=== PATIENT | female | born 2005 | race Caucasian/White ===

== ENCOUNTER 2025-06-21 10:04 | Emergency (ER) | payer MEDICAID, SELFPAY ==
--- NOTE | ~2025-06-21 | XR_ITS ---
EXAMINATION: X-ray left ankle X-ray left foot CLINICAL INFORMATION: Fall, fracture COMPARISON: None TECHNIQUE: Ankle 3 views. Foot 3 views. FINDINGS: Ankle: Asymmetric widening of the medial ankle mortise. There is a mildly displaced fracture fragment posteriorly at the level of the distal tibia, concerning for a posterior malleolar fracture. No fibular fracture is seen. The talar dome appears intact. Soft tissue swelling. Foot: Alignment is anatomic. Tarsometatarsal alignment is maintained. No visible acute fracture or dislocation. No suspicious bony lesions. No abnormal soft tissue calcification. Mild dorsal soft tissue swelling. XR/XR foot LT min 3V IMPRESSION: Ankle: Findings suspicious for a mildly displaced posterior malleolar fracture of the tibia. Soft tissue swelling. Further imaging as clinically indicated. Foot: No acute fracture identified Follow-up imaging as indicated Electronically signed by: Rodolfo Romero MD 06/21/2025 11:57 AM CRICKET
--- NOTE | ~2025-06-21 | XR_ITS ---
EXAMINATION: X-ray left ankle X-ray left foot CLINICAL INFORMATION: Fall, fracture COMPARISON: None TECHNIQUE: Ankle 3 views. Foot 3 views. FINDINGS: Ankle: Asymmetric widening of the medial ankle mortise. There is a mildly displaced fracture fragment posteriorly at the level of the distal tibia, concerning for a posterior malleolar fracture. No fibular fracture is seen. The talar dome appears intact. Soft tissue swelling. Foot: Alignment is anatomic. Tarsometatarsal alignment is maintained. No visible acute fracture or dislocation. No suspicious bony lesions. No abnormal soft tissue calcification. Mild dorsal soft tissue swelling. XR/XR ankle LT min 3V IMPRESSION: Ankle: Findings suspicious for a mildly displaced posterior malleolar fracture of the tibia. Soft tissue swelling. Further imaging as clinically indicated. Foot: No acute fracture identified Follow-up imaging as indicated Electronically signed by: Rodolfo Romero MD 06/21/2025 11:57 AM CRICKET
[2025-06-21 10:34] VITALS: BP 134/87; PULSE 85; RESP 16; TEMP 36.1; O2SAT 100; BMI 33.1
--- NOTE | 2025-06-21 10:38 | ED_ITS ---
HPI - General Adult General Chief complaint: Extremity Injury, Lower Stated complaint: Injury- ankle inj Time Seen by Provider: 06/21/25 12:54 Source: patient Mode of arrival: wheelchair Limitations: no limitations History of Present Illness ED Provider: Karime Morocho PA-C HPI narrative: Patient is a 20 year old assigned female at with no reported medical history presenting to the emergency department today with left ankle pain after a slip and fall. Patient states that she slipped last night and injured her left ankle. Patient denies any head strike or loss of consciousness with the incident. Patient denies any other complaints at this time. Related Data Previous Rx's ?Medication ?Instructions ?Recorded acetaminophen 325 mg tablet 650 mg (2 x 325 mg) PO Q6H PRN 06/21/25 (Tylenol) pain #14 tabs ibuprofen 600 mg tablet 600 mg PO Q8H PRN pain #14 t abs 06/21/25 Allergies Allergy/AdvReac Type Severity Reaction Status Date / Time No Known Allergies (No Known Allergy Verified 06/21/25 10:36 Allergies*) Review of Systems Constitutional: Constitutional: Reports as per HPI Eyes: Eyes: Reports as per HPI ENT: Reports as per HPI Cardiovascular: Cardiovascular: Reports as per HPI Respiratory: Respiratory: Reports as per HPI Gastrointestinal: Gastrointestinal: Reports as per HPI Genitourinary: Genitourinary: Reports as per HPI Musculoskeletal: Musculoskeletal: Reports as per HPI Integumentary/Breasts: Skin/Breast: Reports as per HPI Neurologic: Reports as per HPI Psychiatric: Psychiatric: Reports as per HPI Endocrine: Endocrine: Reports as per HPI Hematologic/Lymphatic: Hematologic/Lymphatic: Reports as per HPI Allergic/Immunologic: Allergic/Immunologic: Reports as per HPI [facility] Past Medical History Attestation statement: The following information was validated with the patient. Source: old records reviewed and nursing notes reviewed Social History Social History Advance Directives: No Advance Directives Information Provided: Yes Physical Exam ED Vital Signs: Vital Signs - 24 hr 06/21/25 10:34 06/21/25 13:18 06/21/25 14:18 Temperature 97 F 0 F L Pulse Rate 85 71 71 Respiratory Rate 16 18 18 Blood Pressure 134/87 129/74 129/74 Pulse Oximetry 100 98 98 Oxygen Delivery Method Room Air Room Air Room Air BMI result Body Mass Index 33.1 Const General: cooperative, no acute distress, alert and awake Nutritional Appearance: well nourished Orientation/consciousness: patient oriented x3 HENMT Head: Yes normal to inspection and Yes atraumatic Ears: hearing grossly normal bilaterally and external ears normal General nose exam: Normal external nose present, no nasal discharge noted and no epistaxis Face and sinus: Yes normal facial exam, No abrasion and No laceration Mouth: Normal oral and palatal mucosa present, no drooling and no muffled voice Eyes General: appearance normal, both eyes and all related structures Periorbital: periorbital findings normal Eyelids: Yes eyelids normal Conjunctivae: conjunctivae normal Pupils: Equal, round and reactive pupils present EOM: EOMs intact bilaterally Neck Neck: Yes normal visual inspection and Yes full ROM Resp Effort & Inspection: normal respiratory effort and able to speak in complete sentences Neuro General: patient oriented x3, moves all extremities and CN's II-XI intact bilaterally Cranial nerves: Yes Equal, round and reactive pupils present Cognition (Neuro): normal cognition Extrem Other: decreased ROM of the left ankle secondary to pain mild swelling present to the left ankle General: Yes capillary refill normal Psych Appearance: grossly normal Mental Status: mental status grossly normal Affect: normal affect Attitude: cooperative Thought process: Normal thought process present Thought content: Normal thought content present Insight: Good insight present (Psych) Course Course Course Narrative: RME: 20 yold female presents to the ED for let ankel injury that occurred last night. patient slipped on carpet last night and fell unto her ankle and heard a crack. positive for ankle tenderness. Xrays ordered Medications Administered Discontinued Medications Generic Name Dose Route Start Last Admin Trade Name Perfectoq PRN Reason Stop Dose Admin Ketorolac Tromethamine 15 mg 06/21/25 14:02 06/21/25 14:21 Ketorolac Tromethamine 15 Mg/Ml Vial IM 06/21/25 14:03 Not Given ONCE ONE Procedures Orthopedic Splinting/Casting Left ankle fracture: Side: left Lower Extremity Injury Location: ankle Lower Extremity Immobilizer: posterior splint Other Orthopedic Equipment: crutches Medical Decision Making Medical Decision Making MDM Narrative: Patient is a 20 year old assigned female at with no reported medical history presenting to the emergency department today with left ankle pain after a slip and fall. Patient's physical exam was as noted in the physical exam portion of this note. Patient's left foot x-ray showed no acute process. Patient's left ankle x-ray showed evidence of a mildly displaced posterior malleolar fracture of the tibia. I spoke with the orthopedic team who recommended a posterior short splint with non weight bearing and crutches. They also stated that since this is not an operative case - she could follow up with the podiatry team. I explained my physical exam findings as well as all test results to the patient. I answered all questions asked by the patient. Patient's left lower extremity was placed in a posterior short leg splint, wit hout incident. Patient's PMS was intact prior to and after splint placement. Patient was given crutches with crutch instructions. Patient was able to demonstrate appropriate use of crutches while in the department. I stressed the importance of the patient taking her medication as directed (either prescribed or as the over the counter packaging recommends). I stressed the importance of the patient following up with her primary care provider and the podiatry team. I stressed the importance of the patient returning to the emergency department immediately if her symptoms were to worsen or if she were to develop any dizziness, shortness of breath, difficulty breathing, chest pain, blurry vision, loss of vision, nausea, vomiting, abdominal pain, fever, chills, back pain, or any other complaints. Patient verbalized agreement and understanding with this treatment plan and discharge. Differential Diagnosis Differential Diagnoses: The differential diagnosis associated with the presentation includes Left ankle fracture Left ankle sprain Left ankle strain Left foot sprain Left foot strain Admission/Observation Consideration of admission/observation: Escalation of care including admission/observation considered Patient would have been admitted to the hospital had her work up had any findings where hospital admission was appropriate and her clinical presentation warranted hospital admission. Consult Healthcare Provider Management of the patient was discussed with: Superintendent Terminal (spoke with the orthopedic team as noted in the MDM Rationale portion of this note. ) Lab Data [facility] Lab Attestation statement: I reviewed the patient's lab results. My interpretation of these results are in the MDM Rationale portion of this note. Labs: Lab Results 06/21/25 Range/Units 10:43 Urine Color Yellow Urine Appearance Clear Urine pH 6.5 (5.0-9.0) Ur Specific [place] 1.020 (1.005-1.025) Urine Protein Negative (Neg-Trace) mg/dL Urine Glucose (UA) Negative (Negative) mg/dL Urine Ketones Negative (Negative) mg/dL Urine Blood Negative (Negative) Urine Nitrite Negative (Negative) Ur Leukocyte Esterase Moderate (2+) H (Negative) Urine RBC 0-2 (0-2) /HPF Urine WBC 0-5 (0-5) /HPF Ur Squamous Epith Cells 6-10 (0-2) /HPF Urine Bacteria 1+ (None Seen) Hyaline Casts 0-2 (0-2) /LPF Urine Test NEGATIVE (NEGATIVE) Independent Interpretation I performed an independent interpretation of an: Plain X-Ray Interpretation: My interpretation is in agreement with the radiologist's impression of these imaging studies. Reason for Exam: foot pain. fall fracture EXAMINATION: X-ray left ankle X-ray left foot CLINICAL INFORMATION: Fall, fracture COMPARISON: None TECHNIQUE: Ankle 3 views. Foot 3 views. FINDINGS: Ankle: Asymmetric widening of the medial ankle mortise. There is a mildly displaced fracture fragment posteriorly at the level of the distal tibia, concerning for a posterior malleolar fracture. No fibular fracture is seen. The talar dome appears intact. Soft tissue swelling. Foot: Alignment is anatomic. Tarsometatarsal alignment is maintained. No visible acute fracture or dislocation No suspicious bony lesions. No abnormal soft tissue calcification. Mild dorsal soft tissue swelling. XR/XR foot LT min 3V IMPRESSION: Ankle: Findings suspicious for a mildly displaced posterior malleolar fracture of the tibia. Soft tissue swelling. Further imaging as clinically indicated. Foot: No acute fracture identified Follow-up imaging as indicated Electronically signed by: Rodolfo Romero MD 06/21/2025 11:57 AM EST Dictated By: Rodolfo Romero MD Signed By: Electronically signed by Rodolfo Romero MD 06/21/25 1612 Radiology Impression Discussion of test interpretation with radiology: I have reviewed the radiologist's reading. Critical Care Time Critical Care Time Critical Care Time: Yes Total Critical Care Time: 31 Attestation: I spent 31 minutes of Critical Care Time with this patient. This does not include time spent on separately reported billable procedures. Discharge Plan Discharge Clinical Impression: Ankle fracture Qualifiers: Encounter type: initial encounter Fracture type: closed Laterality: left Qualified Code(s): S82.892A - Other fracture of left lower leg, initial encounter for closed fracture Patient Disposition: Home, Self-Care Instructions: Ankle Fracture (DC) Additional Instructions: Do NOT bear weight to the left lower extremity. Do NOT stick anything down / into your splint. Do NOT get your splint wet. Do NOT remove your splint. If you have any change in sensation, movement, or color of your left toes - you may loosen the outer CHICHI wraps. If you find yourself loosening the CHICHI wraps to the point of seeing the white splint material underneath - STOP and proceed to your closest Emergency Department, immediately. Follow up with your primary care provider and the podiatry team. Return to the emergency department immediately if your symptoms worsen or if you develop any numbness, tingling, dizziness, shortness of breath, difficulty breathing, chest pain, blurry vision, loss of vision, nausea, vomiting, abdominal pain, fever, chills, back pain, or any other complaints. If you do not have a primary care provider - call any of the below numbers to establish and follow up with a primary care provider. [facility] Primary Care ([place]) [phone] [place] [address], [address] [facility] Primary Care ([address] [place]) [phone] [place] [address], [address] [facility], [address] [facility] Primary Care ([address] [place]) [phone] [place] [address], [address] [facility], [address] [facility] Primary Care ([place]) [phone] [place] [address] [address] [facility], [address] [facility] Family Medicine [phone] [address] [facility], [address] Please see the information below about our Patient Portal. If you are not yet enrolled in the [facility] Patient Portal, you will receive an enrollment email invitation following your visit to any [facility] setting. You may also self-enroll in the Patient Portal by visiting our website: [email or web address] The following information is required to access the Patient Portal: - Your [facility] Medical Record Number - Your personal home email address (must match what is in your electronic medical record, Registration staff can assist with this) - Name - Date of Capabilities of the Patient Portal: - Message some providers - View upcoming appointments - Access your health summary, medical history, and visit history - View current conditions and allergies - View procedure and lab results - View your medications, including guidelines, side effects, and precautions - Complete pre-appointment questionnaires requested by your provider - Ready summary reports of your office visits and procedures To access the Patient Portal Mobile Jeffry, follow these directions: - Search [employer] Mask in the Jeffry Store or Seafile Store - Download the Jeffry - Search for [facility] - Enter your login/password Prescriptions: New acetaminophen [Tylenol] 325 mg tablet 650 mg PO Q6H PRN (Reason: pain) Qty: 14 0RF ibuprofen 600 mg tablet 600 mg PO Q8H PRN (Reason: pain) Qty: 14 0RF Referrals: [facility] Podiatry [Provider Group, Podiatry] Referral Note: Call to establish and follow up with the podiatry team for your left ankle fracture. Stand Alone Forms: Work/School Release Interventions: ED Discharge Assessment Last Done: 06/21/25 14:18 Discharge Date/Time: 06/21/25 14:19 Print Language: Pakistani
[2025-06-21 10:51] LABS: Appearance Urine Clear; Glucose Urine UA Negative (Negative); PH 6.5 (5.0-9.0); Specific Gravity - Urine 1.020 (1.005-1.025); UMIC TRIGGER UACC YES
[2025-06-21 10:54] LABS: UPreg QC Valid YES
[2025-06-21 11:03] LABS: UACC Culture Trigger YES
[2025-06-21 13:18] VITALS: BP 129/74; PULSE 71; RESP 18; O2SAT 98
--- NOTE | 2025-06-21 14:16 | PC.NURSE ---
pt requesting pain medication prior to discharge, attempted to medicated w IM toradol - pt declined d/t not wanting a shot. pt educated on benefits of medication, pt elected to take OTC anti-inflammatory medication at home instead.
[2025-06-21 14:18] VITALS: BP 129/74; PULSE 71; RESP 18; TEMP -17.7; TEMP 0; O2SAT 98
== END 2025-06-21 14:19 | disposition home or self-care (01) ==
PROVIDERS: Physician Assistant; Emergency Provider Emergency Medicine
DX: S82.892A Other fracture of left lower leg, initial encounter for closed fracture (principal); M25.572 Pain in left ankle and joints of left foot; X58.XXXA Exposure to other specified factors, initial encounter; W19.XXXA Unspecified fall, initial encounter; Y93.01 Activity, walking, marching and hiking; Y92.9 Unspecified place or not applicable; Y99.8 Other external cause status
CPT/HCPCS: 29515; 73610; 73630; 81001; 81025; 87086; 96372; 99284; J1885

== ENCOUNTER → 2025-06-21 10:36 | Outpatient (BNV) | payer MEDICAID, SELFPAY | PROVIDERS: Visit Provider Radiology Diagnostic Ultrasound | DX: R22.42 Localized swelling, mass and lump, left lower limb (principal) | CPT/HCPCS: 73610; 73630 ==

== ENCOUNTER 2025-06-24 10:24 | Outpatient (AMB) | payer MEDICAID, SELFPAY ==
--- NOTE | 2025-06-24 10:35 | A.OFFVIS_ITS ---
Vital Signs 06/24/25 10:36 Height 5 ft 1 in Weight 175 lb BMI 33.1 Intake Visit Reasons: mildly displaced posterior malleolar fracture of t Intake Note: gerald is a 20 year old female who presents today as a new patient for an evaluation of her mildly displaced posterior malleolar fracture of the tibia of the left ankle. Patient was seen at [facility] ED after she had fallen while she was at home in her room. While at the ED she was provided with crutches, a splint was applied to patient left foot, and she was prescribed ibuprofen. She denies any history of previous fracture or sprains and X ray is all set in patients chart. Allergies No Known Allergies (No Known Allergies*) Allergy (Verified 06/24/25 10:37) HPI Comments Details: The patient is a 20-year-old female with a past medical history as seen below presenting with a left ankle injury following a fall at home. The incident occurred recently, and the patient reports pain primarily around the ankle, with some pain extending up the leg. Patient states she was seen in the emergency room where she had x-rays done and was told she had a fracture. She states she noticed more swelling and bruising to the area but has noticed it continue to improve. Patient was placed in a posterior splint. She denies any other pedal concerns. [facility] Medical History (Updated 06/26/25 @ 14:53 by Eri Kinsey DPM) Tear of deltoid ligament of left ankle Deltoid (ligament), ankle sprain Closed left ankle fracture Left ankle pain Left ankle injury Review of Systems Const Details: - Musculoskeletal: Reports pain in the left ankle and up the leg. All systems reviewed & are unremarkable except as noted in HPI and below Physical Exam Vital Signs: BMI result Body Mass Index 33.1 Extrem Other: Left lower extremity focused physical exam: Derm: Mild edema and minimal ecchymosis noted to the left lower extremity. No open lesions abrasions or wounds no clinical signs of infection. No hyperkeratotic or macerated areas noted. Skin supple and turgor within normal limits. Vascular: DP/PT pulses palpable. Capillary refill time less than 3 seconds. Temperature gradient warm to warm. Pedal hair absent. No varicosities noted. Neuro: Protective sensation is grossly intact. MSK: Pain on palpation to the ankle along the medial lateral and posterior aspect. No pain on palpation to the foot. No pain upon palpation along the pr oximal aspect of the tibia and fibula. Range of motion of the forefoot within normal limits. Range of motion of the hindfoot and ankle reduced due to guarding from pain. Crepitus or fluctuance noted. Antalgic gait with the use of crutches, patient is nonweightbearing to the left lower extremity. Office Procedures [facility] Podiatry Dressing Details of Procedure: Applied a posterior splint to the left lower extremity. [address] - Short leg splint Procedure code (CPT) selection complete Results Reviewed Results Reviewed: Ordered left tib-fib x-rays and left ankle MRI to be performed prior to next visit. Podiatry read of left ankle x-ray (06/21/2025): Increased medial clear space noted greater than 5 mm of displacement. Avulsion fracture of the posterior malleolus noted with less than 2 mm of displacement. No distal fibular fracture or medial malleolar fracture noted. Left ankle x-ray (06/21/2025): FINDINGS: Ankle: Asymmetric widening of the medial ankle mortise. There is a mildly displaced fracture fragment posteriorly at the level of the distal tibia, concerning for a posterior malleolar fracture. No fibular fracture is seen. The talar dome appears intact. Soft tissue swelling. IMPRESSION: Ankle: Findings suspicious for a mildly displaced posterior malleolar fracture of the tibia. Soft tissue swelling. Further imaging as clinically indicated. Podiatry read of left foot x-ray (06/21/2025): Os trigonum noted. No acute fractures or dislocations noted. Joint spacing within normal limits. Left foot x-ray (06/21/2025): FINDINGS: Foot: Alignment is anatomic. Tarsometatarsal alignment is maintained. No visible acute fracture or dislocation. No suspicious bony lesions. No abnormal soft tissue calcification. Mild dorsal soft tissue swelling. IMPRESSION: Foot: No acute fracture identified Follow-up imaging as indicated Assessment & Plan Assessment & Plan (1) Left ankle pain: Code(s): M25.572 - Pain in left ankle and joints of left foot Category: Medical Qualifiers: Chronicity: acute Qualified Code(s): M25.572 - Pain in left ankle and joints of left foot (2) Left ankle injury: Code(s): S99.912A - Unspecified injury of left ankle, initial encounter Category: Medical Qualifiers: Encounter type: initial encounter Qualified Code(s): S99.912A - Unspecified injury of left ankle, initial encounter (3) Tear of deltoid ligament of left ankle: Code(s): S93.422A - Sprain of deltoid ligament of left ankle, initial encounter Category: Medical Qualifiers: Encounter type: initial encounter Qualified Code(s): S93.422A - Sprain of deltoid ligament of left ankle, initial encounter (4) Deltoid (ligament), ankle sprain: Code(s): S93.429A - Sprain of deltoid ligament of unspecified ankle, initial encounter Category: Medical Qualifiers: Encounter type: initial encounter Laterality: left Qualified Code(s): S93.422A - Sprain of deltoid ligament of left ankle, initial encounter (5) Closed left ankle fracture: Code(s): S82.892A - Other fracture of left lower leg, initial encounter for closed fracture Category: Medical Qualifiers: Encounter type: initial encounter Qualified Code(s): S82.892A - Other fracture of left lower leg, initial encounter for closed fracture Plan Patient was informed and verbally consented to the use of an ambient scribe for clinic note documentation during this visit. I discussed with the patient the findings from the x-rays, which showed a and avulsion fracture of the posterior malleolus and potential deltoid ligament injury. I explained the need for an MRI to further evaluate the deltoid ligament and discussed the possibility of surgical intervention pending results. I also explained the need for tib-fib x-rays to rule out a Maisonneuve fracture. I advised the patient to avoid weight-bearing activities and to continue using a splint. I also discussed pain management options, including ibuprofen or Tylenol PRN for pain - Ordered left tib-fib x-ray and left ankle MRI to be performed prior to next visit. - Applied a posterior splint to the left lower extremity. - Patient is to be nonweightbearing to the left lower extremity with the use of an assistive device. - Patient is to keep the splint clean dry and intact. - Continue taking ibuprofen or Tylenol PRN for pain. RTC in 1 week. Orders: Orders XR tibia fibula LT 2V 06/25/25 M25.572 - Pain in left ankle and joints of left foot, S82.892A - Other fracture of left lower leg, initial encounter for closed fracture, S93.422A - Sprain of deltoid ligament of left ankle, initial encounter, S93.429A - Sprain of deltoid ligament of unspecified ankle, initial e ncounter, S99.912A - Unspecified injury of left ankle, initial encounter MR ankle LT wo con 06/24/25 M25.572 - Pain in left ankle and joints of left foot, S93.422A - Sprain of deltoid ligament of left ankle, initial encounter, S93.429A - Sprain of deltoid ligament of unspecified ankle, initial encounter [facility] Podiatry Dressing 06/24/25 M25.572 - Pain in left ankle and joints of left foot, S82.892A - Other fracture of left lower leg, initial encounter for closed fracture, S93.422A - Sprain of deltoid ligament of left ankle, initial encounter, S99.912A - Unspecified injury of left ankle, initial encounter Coding Level of Care Code New Pt Level 4 (26368) Diagnoses Acute left ankle pain M25.572 Chronicity: acute Injury of left ankle, initial encounter S99.912A Encounter type: initial encounter Tear of deltoid ligament of left ankle, initial encounter S93.422A Encounter type: initial encounter Sprain of deltoid ligament of left ankle, initial encounter S93.422A Encounter type: initial encounter Laterality: left Closed fracture of left ankle, initial encounter S82.892A Encounter type: initial encounter CPT Codes Podiatry Dressing - CPT: 93163 - Short leg splint ([id number]) Time Spent (min) 52
[2025-06-24 10:36] VITALS: BMI 33.1
== END 2025-06-24 11:02 | disposition home or self-care (01) ==
LOC: HO.HPODS 10:25
PROVIDERS: Visit Provider Student in an Organized Health Care Education/Training Program
DX: M25.572 Pain in left ankle and joints of left foot (principal); S99.912A Unspecified injury of left ankle, initial encounter; S93.422A Sprain of deltoid ligament of left ankle, initial encounter; S82.892A Other fracture of left lower leg, initial encounter for closed fracture
CPT/HCPCS: 29515; 99204

== ENCOUNTER → 2025-06-24 10:24 | Outpatient (BNVA) | payer MEDICAID, SELFPAY | PROVIDERS: Visit Provider Student in an Organized Health Care Education/Training Program | DX: S93.422A Sprain of deltoid ligament of left ankle, initial encounter (principal); S82.892A Other fracture of left lower leg, initial encounter for closed fracture; W01.0XXA Fall on same level from slipping, tripping and stumbling without subsequent striking against object, initial encounter; Y93.9 Activity, unspecified; Y92.003 Bedroom of unspecified non-institutional (private) residence as the place of occurrence of the external cause; Y99.9 Unspecified external cause status | CPT/HCPCS: 29515; 99202 ==

== ENCOUNTER 2025-06-25 10:45 | Outpatient (REF) | payer MEDICAID, SELFPAY ==
--- NOTE | ~2025-06-25 | XR_ITS ---
Exam: 2 view left tibia-fibula TECHNIQUE: AP and lateral x-rays of the left lower leg were obtained INDICATION: S99.912A - Unspecified injury of left ankle, initial encounter Prior: Left ankle x-ray from 4 days earlier. FINDINGS: Again seen is a fracture involving the posterior distal tibial plafond extending to the margin of the articular surface. There is possible subtle widening of the medial clear space. No other abnormality is evident. XR/XR tibia fibula LT 2V IMPRESSION: Stable posterior malleolar fracture. Questionable mild widening of the medial clear spaces raises question of a deltoid ligament injury. Electronically signed by: Tomasz Eller MD 06/25/2025 11:14 AM CRICKET
== END 2025-06-25 10:46 | disposition home or self-care (01) ==
LOC: HO.XRAY 10:45
PROVIDERS: Visit Provider Student in an Organized Health Care Education/Training Program
DX: S93.422A Sprain of deltoid ligament of left ankle, initial encounter (principal); S82.892A Other fracture of left lower leg, initial encounter for closed fracture
CPT/HCPCS: 73590

== ENCOUNTER → 2025-06-25 10:50 | Outpatient (BNV) | payer MEDICAID, SELFPAY | PROVIDERS: Visit Provider Radiology Diagnostic Radiology | DX: S82.892A Other fracture of left lower leg, initial encounter for closed fracture (principal) | CPT/HCPCS: 73590 ==

== ENCOUNTER 2025-06-30 11:37 | Outpatient (AMB) | payer MEDICAID, SELFPAY ==
[2025-06-30 11:50] VITALS: BMI 33.1
--- NOTE | 2025-06-30 11:50 | MHC.OFFVIS ---
Vital Signs 06/30/25 11:50 Height 5 ft 1 in Weight 175 lb BMI 33.1 Intake Visit Reasons: f/u xrays & MRI; left ankle fracture and deltoid l Intake Note: Williams is a 20 year old female who presents today as a follow up for her mildly displaced posterior malleolar fracture of the tibia of the left ankle. Orders were placed for left tib-fib x-rays and left ankle MRI. X-rays were completed and are in her chart, but MRI not completed yet. Patient advised to avoid weight-bearing activities and to continue using a splint. Continue taking ibuprofen or Tylenol PRN for pain. Patient reports she had removed the splint due to the wrapping getting wet and she feels a tight sensation on her left hindfoot Allergies No Known Allergies (No Known Allergies*) Allergy (Verified 06/30/25 11:50) HPI Comments Details: The patient is a 20 year old individual presenting for a follow-up of a left ankle fracture and deltoid ligament injury. The patient reports a reduction in pain and she states she has tried to be nonweightbearing to the left lower extremity with the use of a posterior splint and an assistive device. Patient states sometimes she has to walk on the left lower extremity due to living on the 2nd floor. The patient has been taking ibuprofen and Tylenol with mild relief, but states she was afraid to take more than 1 tablet a day. She denies any new pedal injuries. She denies any other pedal concerns. Patient obtained tib-fib x-rays but has not obtained MRI yet. [facility] Medical History (Updated 06/26/25 @ 14:53 by Eri Kinsey DPM) Tear of deltoid ligament of left ankle Deltoid (ligament), ankle sprain Closed left ankle fracture Left ankle pain Left ankle injury Review of Systems Const Details: - Musculoskeletal: Reports occasional pain in the ankle with certain movements. All systems reviewed & are unremarkable except as noted in HPI and below Physical Exam Vital Signs: BMI result Body Mass Index 33.1 Extrem Other: Left lower extremity focused physical exam: Derm: Mild edema and minimal ecchymosis noted to the left lower extremity. No open lesions abrasions or wounds no clinical signs of infection. No hyperkeratotic or macerated areas noted. Skin supple and turgor within normal limits. Vascular: DP/PT pulses palpable. Capillary refill time less than 3 seconds. Temperature gradient warm to warm. Pedal hair absent. No varicosities noted. Neuro: Protective sensation is grossly intact. MSK: Slightly reduced Pain on palpation to the ankle along the medial lateral and posterior aspect. No pain on palpation to the foot. No pain upon palpation along the proximal aspect of the tibia and fibula. Range of motion of the forefoot within normal limits. Range of motion of the hindfoot and ankle reduced due to guarding from pain. Crepitus or fluctuance noted. Antalgic gait with the use of crutches. Office Procedures AMB Podiatry Dressing Details of Procedure: Applied a stockinette, cast padding, an Henry bandage to the left lower extremity with the use of the [employer] 31217 - Short leg splint Procedure code (CPT) selection complete Results Reviewed Results Reviewed: Ordered left ankle MRI to be performed prior to next visit. Podiatry read of left tib-fib x-rays (06/25/2025): No Maisonneuve fracture noted. Left tib-fib x-rays (06/25/2025): FINDINGS: Again seen is a fracture involving the posterior distal tibial plafond extending to the margin of the articular surface. There is possible subtle widening of the medial clear space. No other abnormality is evident. IMPRESSION: Stable posterior malleolar fracture. Questionable mild widening of the medial clear spaces raises question of a deltoid ligament injury. Podiatry read of left ankle x-ray (06/21/2025): Increased medial clear space noted greater than 5 mm of displacement. Avulsion fracture of the posterior malleolus noted with less than 2 mm of displacement. No distal fibular fracture or medial malleolar fracture noted. Left ankle x-ray (06/21/2025): FINDINGS: Ankle: Asymmetric widening of the medial ankle mortise. There is a mildly displaced fracture fragment posteriorly at the level of the distal tibia, concerning for a posterior malleolar fracture. No fibular fracture is seen. The talar dome appears intact. Soft tissue swelling. IMPRESSION: Ankle: Findings suspicious for a mildly displaced posterior malleolar fracture of the tibia. Soft tissue swelling. Further imaging as clinically indicated. Podiatry read of left foot x-ray (06/21/2025): Os trigonum noted. No acute fractures or dislocations noted. Joint spacing within normal limits. Left foot x-ray (06/21/2025): FINDINGS: Foot: Alignment is anatomic. Tarsometatarsal alignment is maintained. No visible acute fracture or dislocation. No suspicious bony lesions. No abnormal soft tissue calcification. Mild dorsal soft tissue swelling. IMPRESSION: Foot: No acute fracture identified Follow-up imaging as indicated Assessment & Plan Assessment & Plan (1) Left ankle pain: Code(s): M25.572 - Pain in left ankle and joints of left foot Category: Medical Qualifiers: Chronicity: acute Qualified Code(s): M25.572 - Pain in left ankle and joints of left foot (2) Left ankle injury: Code(s): S99.912A - Unspecified injury of left ankle, initial encounter Category: Medical Qualifiers: Encounter type: initial encounter Qualified Code(s): S99.912A - Unspecified injury of left ankle, initial encounter (3) Tear of deltoid ligament of left ankle: Code(s): S93.422A - Sprain of deltoid ligament of left ankle, initial encounter Category: Medical Qualifiers: Encounter type: initial encounter Qualified Code(s): S93.422A - Sprain of deltoid ligament of left ankle, initial encounter (4) Deltoid (ligament), ankle sprain: Code(s): S93.429A - Sprain of deltoid ligament of unspecified ankle, initial encounter Category: Medical Qualifiers: Encounter type: initial encounter Laterality: left Qualified Code(s): S93.422A - Sprain of deltoid ligament of left ankle, initial encounter (5) Closed left ankle fracture: Code(s): S82.892A - Other fracture of left lower leg, initial encounter for closed fracture Category: Medical Qualifiers: Encounter type: initial encounter Qualified Code(s): S82.892A - Other fracture of left lower leg, initial encounter for closed fracture Plan Patient was informed and verbally consented to the use of an ambient scribe for clinic note documentation during this visit. I informed the patient that her most recent xrays were negative for the Maisonneuve fracture. I explained that the primary remaining concern is to evaluate the ankle ligaments for a tear, which requires an MRI. I discussed the plan to place the patient in a CAM boot and maintain [id number] status. I clarified that a referral to a primary care physician, Dr. Jackson, is necessary to obtain approval for the MRI. We reviewed pain management, and I advised that taking two tablets of ibuprofen or Tylenol is appropriate. A follow-up visit is scheduled in three weeks to reassess and likely review the MRI findings. - Applied a stockinet, cast padding, and HENRY bandage to the LLE with the use of a CAMboot. - The patient is instructed to be [id number] on the left lower extremity. - For pain management, the patient may take two tablets of ibuprofen or Tylenol as needed. - A referral was made to primary care physician, Dr. Jackson, to facilitate approval for an MRI of the ankle. - If the MRI shows no ligament tear, the patient will be cleared to begin gradual ambulation in the boot. RTC in 3 week. Orders: Orders AMB Podiatry Dressing 06/30/25 M25.572 - Pain in left ankle and joints of left foot, S82.892A - Other fracture of left lower leg, initial encounter for closed fracture, S93.422A - Sprain of deltoid ligament of left ankle, initial encounter, S99.912A - Unspecified injury of left ankle, initial encounter Coding Level of Care Code Est Pt Level 4 (25432) Diagnoses Acute left ankle pain M25.572 Chronicity: acute Injury of left ankle, initial encounter S99.912A Encounter type: initial encounter Tear of deltoid ligament of left ankle, initial encounter S93.422A Encounter type: initial encounter Sprain of deltoid ligament of left ankle, initial encounter S93.422A Encounter type: initial encounter Laterality: left Closed fracture of left ankle, initial encounter S82.892A Encounter type: initial encounter CPT Codes Podiatry Dressing - CPT: 12961 - Short leg splint ([id number]) Time Spent (min) 35
== END 2025-06-30 12:11 | disposition home or self-care (01) ==
LOC: HO.HPODS 11:37
PROVIDERS: Visit Provider Student in an Organized Health Care Education/Training Program
DX: M25.572 Pain in left ankle and joints of left foot (principal); S82.892A Other fracture of left lower leg, initial encounter for closed fracture; S93.422A Sprain of deltoid ligament of left ankle, initial encounter
CPT/HCPCS: 29515; 99213

== ENCOUNTER → 2025-06-30 11:37 | Outpatient (BNVA) | payer MEDICAID, SELFPAY | PROVIDERS: Visit Provider Student in an Organized Health Care Education/Training Program | DX: S93.422A Sprain of deltoid ligament of left ankle, initial encounter (principal); S82.892A Other fracture of left lower leg, initial encounter for closed fracture; X58.XXXA Exposure to other specified factors, initial encounter; Y93.9 Activity, unspecified; Y92.9 Unspecified place or not applicable; Y99.9 Unspecified external cause status | CPT/HCPCS: 29515; 99212 ==

== ENCOUNTER 2025-07-27 09:38 | Outpatient (AMB) | payer MEDICAID, SELFPAY ==
--- NOTE | 2025-07-27 09:41 | MHC.PC.OV ---
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 Accompanied by: Self / Same As Patient Allergies No Known Allergies (No Known Allergies*) Allergy (Verified 07/27/25 09:44) Medication List - Last Reconciled 07/27/25 by Jorge Jackson MD acetaminophen (Tylenol) 650 mg (2 x 325 mg) PO Q6H PRN ibuprofen 600 mg PO Q8H PRN Tobacco use date assessed: 07/27/25 Dental Screening Dental Screen Date: 07/27/25 Did you have a dental visit in the last 12 months?: No Did you have a dental problem in the last 6 months where you did not have access to dental care?: No Was dental information given to patient?: No HPI HPI Comments History of Present Illness Details History of Present Illness The patient is a 20 year old female presenting for an initial visit to establish care and for a physical examination. Suspected Polycystic Ovary Syndrome (PCOS): The patient reports having irregular periods, where she will go one or two months without a menstrual cycle, and when it does occur, it is heavy. She has researched the symptoms of PCOS and believes she may have the condition. She denies any facial hair. Class 1 Obesity: The patient reports experiencing excessive weight gain suddenly, and it has been very difficult for her to lose weight. Her BMI is 33.1, which falls into the class 1 obesity category. Establishment of Care and Health Maintenance: The patient has not seen a doctor since the 6th grade, approximately 8 years ago, and reports feeling neglected regarding medical care during her upbringing. She has never had her blood drawn and expresses significant fear and anxiety about hospitals, shots, and medical procedures. She is sexually active and not currently using any form of protection or contraception, and she does not wish to get . She has never had a Pap smear. She smokes cannabis but denies any other drug use. She reports a history of a broken left foot, for which she has seen a grocery store bagger for approximately three appointments. Surgical History: - No prior surgeries reported. Medications: - The patient is not currently taking any medications. Social History: - Substance Use: The patient reports smoking cannabis ( weed ). She denies any other drug use. - Family Planning: She is sexually active, does not use protection or contraception, and does not wish to become . - Employment: She works mornings. - Medical Care History: She reports not having seen a physician since the 6th grade, feeling that she was neglected in this regard. Family History: - Family history was not discussed. Diagnostic Results: - No prior results were discussed. Past Medical History - History of left foot fracture. - No hospitalizations. - No known allergies. - Patient has not seen a doctor in approximately 8 years, since the 6th grade. - Never has had a Pap smear. Health Maintenance - Patient is 20 years old and due for her first cervical cancer screening (Pap smear); a referral will be placed to [facility]. - Counseled on contraception options as she is sexually active and does not desire ; options discussed included oral contraceptives, injections, IUD, and Nexplanon. - Recommended daily folic acid supplementation due to being of childbearing age and not using contraception. - Baseline laboratory studies ordered, including CBC, CMP, lipid panel, hemoglobin A1c, vitamin B12, folate, and vitamin D. - Screening for sexually transmitted infections ordered, including chlamydia, gonorrhea, syphilis, HIV, hepatitis B, and hepatitis C. - Discussion regarding class 1 obesity (BMI 33.1) in the context of overall health and as a criterion for suspected PCOS. [facility] Medical History (Updated 07/27/25 @ 11:19 by Jorge Jackson MD) Tear of deltoid ligament of left ankle Deltoid (ligament), ankle sprain Closed left ankle fracture Left ankle pain Left ankle injury Surgical History (Updated 07/27/25 @ 09:45 by Piotr Landers CMA) No pertinent past surgical history Social History (Updated 07/27/25 @ 09:46 by Piotr Landers CMA) Housing: House Alcohol intake: current Comment: Ocasionally Patient Tobacco Use Status: Never used Tobacco e-Cigarette/Vaping Use: Former Use Second Hand Smoke Exposure: No Substance Use Type: Marijuana service: No Current occupational status: employed Current occupation: [employer] Current occupational exposures/hazards: No Cognitive needs: No Hearing needs: No Vision needs: Yes Questionnaire PHQ-9 Over the last 2 weeks, how often have you been bothered by any of the following problems? 1. Little interest or pleasure in doing things: several days 2. Feeling down, depressed, or hopeless: more than half the days 3. Trouble falling or staying asleep, or sleeping too much: more than half the days 4. Feeling tired or having little energy: more than half the days 5. Poor appetite or overeating: more than half the days 6. Feeling bad about yourself - or that you are a failure or have let yourself or your family down: nearly every day 7. Trouble concentrating on things, such as reading the newspaper or watching television: more than half the days 8. Moving or speaking so slowly that other people could have noticed. Or the opposite - being so fidgety or restless that you have been moving around a lot more than usual: several days 9. Thoughts that you would be better off or of hurting yourself in some way: more than half the days Total score: 17 Depression Screening Interpretation: Positive Depression Screening Follow-up: Follow-up Visit Requested Depression Screening Done: Yes 77144 - PHQ-9 Billing: Yes Source: Developed by Drs. Jonnathan Locke, Danuta Martines, Alex Ramos and colleagues, with an educational deangelo from [employer] Thrive Questionnaire Date Thrive assessed: 07/27/25 I am a: Patient What is your living situation today?: I have a steady place to live Within the past 12 months, did the food you bought not last and you didn't have the money to get more?: Sometimes True Within the past 12 months, did you worry whether your food would run out before you got money to buy more?: Sometimes True Do you have trouble paying for medicines?: No Do you have trouble getting transportation to medical appointments?: No Do you have trouble paying your heating and electricity bill?: I choose not to answer this question Do you have trouble taking care of your child, family member or friend?: I choose not to answer this question Are you currently unemployed and looking for a job?: No Are you interested in more education?: Yes Currently or been in a relationship where the following occur: No concerns reported THRIVE Score: 2 AUDIT C Alcohol Use Questionnaire (AUDIT-C) 1. How often do you have a drink containing alcohol?: Monthly or less 2. How many drinks containing alcohol do you have on a typical day when you are drinking?: 1 or 2 3. How often do you have six or more drinks on one occasion?: Never Total Score: 1 STEPHANY-7 AMB Questionnaire STEPHANY-7 Date STEPHANY - 7 assessed: 07/27/25 Feeling nervous, anxious, or on edge: 1 = Several days Not being able to stop or control worryin = Several days Worrying too much about different things: 2 = More than half the days Trouble relaxin = Several days Being so restless that it is hard to sit still: 2 = More than half the days Becoming easily annoyed or irritable: 3 = Nearly every day Feeling afraid as if something awful might happen: 2 = More than half the days Total STEPHANY-7 score (0-4 normal; 5-9 mild; 10-14 moderate; 15-21 severe): 12 Source: Developed by Drs. Jonnathan Locke, Danuta Martines, Alex Ramos and colleagues, with an educational deangelo from [employer] STEPHANY-7 Assessment Billing STEPHANY-7 Assessment Tool: STEPHANY-7 Assessment 92468 Review of Systems Narrative Review of Systems - Constitutional: Reports excessive weight gain. Reports poor sleep due to work. Reports probable snoring. Denies waking up gasping for air. - Gynecological: Reports irregular menses, occurring every 1-2 months, which are then heavy. Denies desire for . - Skin: Denies facial hair. - Gastrointestinal: Reports occasional pain in her side but is uncertain of its relation to her menstrual cycle. Denies issues with bowel movements. - Genitourinary: Denies issues with urination. - Musculoskeletal: Reports history of a left foot fracture. Denies back pain. - Psychiatric: Reports significant fear and terror related to hospitals, shots, and blood draws. - All other systems reviewed and negative. 10-point ROS reviewed and negative except as noted in HPI Physical exam (Primary Care) Vital Signs: Last Vital Signs Temp 98.5 F 07/27/25 09:46 Pulse 80 07/27/25 09:46 Resp 18 07/27/25 09:46 BP 125/74 07/27/25 09:46 Pulse Ox 100 07/27/25 09:46 Oxygen Delivery Method Room Air 07/27/25 09:46 BMI result Body Mass Index 33.1 Tobacco/Smoking Status: Tobacco use Status Tobacco use date assessed 07/27/25 07/27/25 09:48 Patient Tobacco Use Status Never used Tobacco 07/27/25 09:48 e-Cigarette/Vaping Use Former Use 07/27/25 09:48 PHQ-9: PHQ-9 Score PHQ-9: Total score 17 07/27/25 09:48 Depression Screening Interpretation: Positive Depression Screening Follow-up: Follow-up Visit Requested Thrive Assessment: Date of Thrive Assessment Date Thrive assessed 07/27/25 07/27/25 09:48 Currently or been in a relationship where the following occur: No concerns reported Narrative Physical Exam General: Well-appearing, in no acute distress. Vital signs: Within normal limits. HEENT: Normocephalic, atraumatic. PERRLA, EOMI. Conjunctiva clear, sclera anicteric. Oropharynx clear, mucous membranes moist. TMs intact bilaterally. Neck: Supple, no lymphadenopathy, no thyromegaly, no JVD or carotid bruits. Cardiovascular: RRR, normal S1/S2, no murmurs, rubs, or gallops. Peripheral pulses 2+ and symmetric. No edema. Respiratory: Lungs clear to auscultation bilaterally, no wheezes, rales, or rhonchi. Normal effort. Abdomen: Soft, non-tender, non-distended. Normoactive bowel sounds. No hepatosplenomegaly, no masses. Reports occasional pain in the side, not associated with menstruation. MSK: Full range of motion, no joint swelling or deformity. Normal gait. History of left foot fracture with a back chip and slight bone protrusion. Skin: Warm, dry, intact. No rashes, lesions, or pallor. Neuro: Alert and oriented x3. Cranial nerves II-XII intact. Strength 5/5 throughout. Sensation intact. Reflexes 2+ symmetric. Normal coordination and gait. Psych: Appropriate mood and affect. Normal judgment and insight. Reports fear of hospitals and medical procedures. Coding Level of Care Code New Pt Level 4 (42858) Add On Problem Visit Only Diagnoses PCOS (polycystic ovarian syndrome) E28.2 Class 1 obesity E66.811 Menstrual irregularity N92.6 Cannabis use disorder F12.90 Additional Codes STEPHANY-7 Assessment Billing - STEPHANY-7 Assessment Tool: STEPHANY-7 Assessment 33451 ([id number]) PHQ-9 - 80266 - PHQ-9 Billing: Yes ([id number]) Assessment & Plan Assessment & Plan (1) PCOS (polycystic ovarian syndrome): Code(s): E28.2 - Polycystic ovarian syndrome Category: Medical (2) Class 1 obesity: Code(s): E66.811 - Obesity, class 1 Category: Medical (3) Menstrual irregularity: Code(s): N92.6 - Irregular menstruation, unspecified Category: Medical (4) Cannabis use disorder: Code(s): F12.90 - Cannabis use, unspecified, uncomplicated Category: Medical Plan Consent The risks, benefits, and alternatives for comprehensive lab testing were discussed with the patient. This includes a complete blood count, comprehensive metabolic panel, lipid panel, hemoglobin A1c, vitamin levels, sexually transmitted infection screening, and hormonal studies for suspected PCOS. The purpose and procedure of a Pap smear for cervical cancer screening were explained, including taking a small sample of cells from the cervix to check for abnormalities. The patient acknowledged her significant anxiety about needles and blood draws but verbally consented to the plan for labs and a referral to [facility] for the Pap smear. Patient was informed and verbally consented to the use of an ambient scribe for clinic note documentation during this visit. Plan 1. Suspected Polycystic Ovary Syndrome (Pcos) - To investigate for PCOS, which is suspected based on her irregular menses and obesity, hormone lab studies will be ordered, including testosterone, androgen, and DHEA sulfate. - An ultrasound to check for cysts on the ovaries was mentioned as part of the diagnostic criteria. - If the diagnosis is confirmed, there are medications that can be initiated. 2. New Patient Encounter And Health Maintenance - As this is an initial visit, baseline labs will be ordered, including a complete blood count (CBC), comprehensive metabolic panel (CMP), lipid panel, hemoglobin A1c, vitamin B12, folate, and vitamin D. - Folic acid will be prescribed for daily use because the patient is of childbearing age, sexually active, and not using contraception. - Contraception options were discussed, including oral pills, injections, IUD, and Nexplanon. - A referral will be placed for an [facility] visit for a cervical cancer screening (Pap smear), as the patient is 20 and has never had one. - Screening for sexually transmitted infections will be performed via blood and urine, including tests for chlamydia, gonorrhea, syphilis, HIV, hepatitis B, and hepatitis C. - The patient will follow up in 2 weeks to discuss all results. 3. Anxiety Related To Medical Procedures - The patient's significant fear of needles and blood draws was acknowledged. - She was advised she can get the labs done when she feels mentally prepared but must do so before her follow-up appointment. Discussion Notes I discussed with the patient that this is our initial encounter to establish care. I explained that her symptoms of irregular periods and weight gain, along with her BMI of 33.1, are concerning for polycystic ovary syndrome (PCOS). I outlined the plan to order bloodwork to establish a baseline and specifically test her hormone levels, including testosterone and DHEA sulfate, to help supports a diagnosis of PCOS. Given that she is sexually active, of childbearing age, and not using contraception, I explained the importance of taking daily folic acid to prevent potential defects in case of , and I will prescribe it for her. We reviewed various contraception options. I informed her that she is due for a cervical cancer screening and explained what a Pap smear entails, which involves collecting cells from the cervix to check for abnormalities. Per her preference, I will place a referral to an [facility] for this procedure. I acknowledged her significant fear of needles and hospitals, reassuring her and explaining that all the initial tests are from blood and urine samples. I instructed her that she must have the labs drawn before our follow-up visit in two weeks, at which time we will review all the results and determine the next steps. Patient Instructions - Begin taking folic acid every day. I will send a prescription for this vitamin. - Go to the lab in our building to have your blood drawn and to provide a urine sample before your next visit. The lab is open from 9 AM to 4 PM. - Drink plenty of water before you go for your blood test. - We discussed several control options to prevent . Let me know if you would like to start one. - I am referring you to a women's health specialist ([facility]) for a cervical cancer screening, called a Pap smear. - Schedule a follow-up appointment to see me in two weeks to discuss your lab results. Medical Decision Making The patient is a 20-year-old female presenting for her first visit to establish care. Her clinical presentation, including irregular menses and obesity (BMI 33.1), is suspicious for Polycystic Ovary Syndrome (PCOS). My diagnostic plan is to first confirm or rule out the biochemical hyperandrogenism component of PCOS and assess her overall metabolic health. Therefore, I have ordered a comprehensive set of labs including a hormone panel (testosterone, androgen, DHEA sulfate), CBC, CMP, lipids, HbA1c, and vitamin levels. Given the patient is of childbearing age, sexually active, and not using contraception, preventative measures are crucial. I have prescribed folic acid to mitigate the risk of neural tube defects in case of an unplanned and counseled her on various contraception methods. She is also due for routine health maintenance, including her first Pap smear, for which a referral to [facility] is appropriate. Screening for STIs is also indicated due to her being sexually active. The patient's significant anxiety regarding medical procedures, particularly phlebotomy, was a rahman factor in the discussion; the plan allows her autonomy in scheduling the necessary tests while emphasizing their importance for our follow-up in two weeks. Total Time Statement 30 min Total time spent caring for the patient today includes pre-visit chart review, documentation, review of laboratory and diagnostic imaging results, medication reconciliation, medically necessary evaluation, counseling on diagnoses, care coordination, ordering appropriate tests and medications, review of tests performed by other providers, reporting test results to the patient, and communication with other healthcare providers. Orders: Orders Complete Blood Count Auto Diff Today Z13.9 - Encounter for screening, unspecified Hepatitis B Surface Antigen Today Z13.9 - Encounter for screening, unspecified Vitamin B12 and Folate Today Z13.9 - Encounter for screening, unspecified Prolactin Today N92.6 - Irregular menstruation, unspecified Testosterone, Free/Total Today N92.6 - Irregular menstruation, unspecified Syphilis Screen Today Z13.9 - Encounter for screening, unspecified Comprehensive Met. Panel Today Z13.9 - Encounter for screening, unspecified Hepatitis C Antibody Today Z13.9 - Encounter for screening, unspecified TSH reflex Free T4 Today Z13.9 - Encounter for screening, unspecified HIV Ab/Ag Today Z13.9 - Encounter for screening, unspecified UA CC w/rflx Micro + Cult Today Z13.9 - Encounter for screening, unspecified Lipid Panel Today Z13.9 - Encounter for screening, unspecified Hemoglobin A1c Today Z13.9 - Encounter for screening, unspecified Magnesium Today Z13.9 - Encounter for screening, unspecified Hepatitis B Surface Antibody Today Z13.9 - Encounter for screening, unspecified Vitamin D 25-OH (D2 and D3) Today Z13.9 - Encounter for screening, unspecified DHEA Sulfate Today N92.6 - Irregular menstruation, unspecified 17 Hydroxyprogesterone Today N92.6 - Irregular menstruation, unspecified Referrals [facility] Referral Z12.4 - Encounter for screening for malignant neoplasm of cervix Medications: New folic acid 0.4 mg PO DAILY 90 tabs 0RF
[2025-07-27 09:46] VITALS: BP 125/74; PULSE 80; RESP 18; TEMP 36.9; O2SAT 100; BMI 33.1
== END 2025-07-27 10:12 | disposition home or self-care (01) ==
LOC: HO.HMCFMS 09:38
PROVIDERS: PCP Student in an Organized Health Care Education/Training Program; Visit Provider Student in an Organized Health Care Education/Training Program
DX: E28.2 Polycystic ovarian syndrome (principal); E66.811 Obesity, class 1; N92.6 Irregular menstruation, unspecified; F12.90 Cannabis use, unspecified, uncomplicated

== ENCOUNTER → 2025-07-27 09:38 | Outpatient (BNVA) | payer MEDICAID, SELFPAY | PROVIDERS: Visit Provider Student in an Organized Health Care Education/Training Program | DX: E28.2 Polycystic ovarian syndrome (principal); E66.811 Obesity, class 1; Z68.33 Body mass index [BMI] 33.0-33.9, adult; F33.1 Major depressive disorder, recurrent, moderate; N92.6 Irregular menstruation, unspecified; F12.90 Cannabis use, unspecified, uncomplicated | CPT/HCPCS: 96127; 99202 ==